=== PATIENT | female | born 1985 | race Two or more races ===

== ENCOUNTER → 2025-08-25 | Outpatient (CLI) | payer BC | LOC: M WHC 09:46 | PROVIDERS: ATTEND Physician Assistant | DX: N63.11 Unspecified lump in the right breast, upper outer quadrant (principal) ==

== ENCOUNTER → 2025-09-07 | Outpatient (CLI) | payer BC ==
[2025-09-07 11:11] LABS: CALCIUM LEVEL 8.9 MG/DL (8.5-10.1); CARBON DIOXIDE LEVEL 28.0 MMOL/L (20-31); CHLORIDE LEVEL 103.0 MMOL/L (98-107); CREATININE FOR GFR 0.86 MG/DL (0.55-1.30); GLOMERULAR FILTRATION RATE 88.1 (>60); LUTEINIZING HORMONE 16.2 mIU/ML; POTASSIUM SERUM 4.3 MMOL/L (3.5-5.1); SODIUM LEVEL 140.0 MMOL/L (136-145)
[2025-09-07 11:12] LABS: PROLACTIN 11.57 NG/ML; TESTOSTERONE 22.0 NG/DL (14-76)
[2025-09-09 03:38] LABS: SEX HORMONE BINDING GLOBULIN 33 nmol/L (17-124)
== END ==
LOC: M PLALAB 08:14
PROVIDERS: ATTEND Physician Assistant
DX: L68.0 Hirsutism (principal)

== ENCOUNTER → 2025-09-09 | Outpatient (REF) | payer BC ==
[2025-09-13 12:40] LABS: HPV APTIMA Not Detected (Not Detected)
== END ==
LOC: M SFHCWAGY 13:30
PROVIDERS: ATTEND Physician Assistant
DX: Z12.4 Encounter for screening for malignant neoplasm of cervix (principal); R87.610 Atypical squamous cells of undetermined significance on cytologic smear of cervix (ASC-US)